=== PATIENT | male | born 1940 | race Caucasian/White ===

== ENCOUNTER → 2023-09-21 | Outpatient (CLI) | payer MEDICARE, BC ==
[~2023-09-21] VITALS: Ht 172.7 cm; Wt 97.7 kg
[2023-09-21 10:40] VITALS: BP 130/70; O2SAT 96
[2023-09-21] MEDS: [UNRECOGNIZED DRUG - OTHER] IV ONE (11:19)
[2023-09-21] MEDS: NS IV ONE (11:19)
[2023-09-21 12:50] VITALS: BP 137/63; O2SAT 98
== END ==
LOC: M INFU 10:20
PROVIDERS: ATTEND Psychiatry & Neurology Neurology
DX: G30.8 Other Alzheimer's disease (principal)
CPT/HCPCS: 96365; J0172

== ENCOUNTER → 2023-10-14 | Outpatient (CLI) | payer MEDICARE, BC | LOC: M RAD 16:41 | PROVIDERS: ATTEND Psychiatry & Neurology Neurology | DX: G30.9 Alzheimer's disease, unspecified (principal); Z79.899 Other long term (current) drug therapy ==

== ENCOUNTER 2023-10-19 09:50 | Outpatient (CLI) | payer MEDICARE, BC ==
[~2023-10-19] VITALS: Ht 177.8 cm; Wt 100.0 kg
[2023-10-19 09:50] VITALS: BP 122/58; O2SAT 94
[2023-10-19 10:00] VITALS: BP 128/72; O2SAT 98
[2023-10-19] MEDS: [UNRECOGNIZED DRUG - OTHER] IV ONE (10:46)
[2023-10-19] MEDS: NS IV ONE (10:46)
== END 2023-10-19 11:55 ==
LOC: M INFU 09:50 → EDUNIT# 10:00 → M INFU 11:55
PROVIDERS: ATTEND Psychiatry & Neurology Neurology
DX: G30.8 Other Alzheimer's disease (principal); E85.9 Amyloidosis, unspecified
CPT/HCPCS: 96365; J0172